=== PATIENT | female | born 1945 | race Caucasian/White ===

== ENCOUNTER → 2017-05-26 | Outpatient (CLI) | payer MEDICARE ==
--- NOTE | 2017-05-26 12:48 | KCIC ---
DEXA study Indication: Osteoporosis screening Findings: The bone mineral density of the lumbar spine L1-L4 0.982 g/cm^2 T score: -0.6 The average bone mineral density of the bilateral femurs: 0.837 g/cm^2 T score of -0.9. According to the world health organization (WHO): Normal: T score at or above -1 standard deviation Osteopenia: T score between -1 and -2.5 standard deviations Osteoporosis: T score at or below -2.5 standard deviations. Impression: Findings are consistent with mild osteopenia. Followup is recommended in 2 years. Electronically signed by: Jose Rainey MD (05/26/2017 12:44 PM)
--- NOTE | 2017-05-26 14:52 | KCIC ---
Bilateral digital screening mammograms: Reason for examination: Routine screening. Comparison is made to previous studies dated 07/23/2015 and 07/10/2013. The skin and nipples show no abnormalities. No abnormal axillary lymph nodes are seen. The breast parenchyma shows scattered fibroglandular density. (Breast density: Category B.) There continues to be a small nodule consistent with an intramammary lymph node in the lateral left breast on CC view which is unchanged. There are no new dominant masses, suspicious calcifications or architectural distortions. Impression: No evidence of malignancy. Recommend routine screening. BI-RADS Category 2: Benign. "Our facility is accredited by the [employer] Mammography Program." This patient's information has been entered into a reminder system for the patient to be notified with the results of her examination and a target date for the next mammogram. Electronically signed by: Gina Perry MD (05/26/2017 2:49 PM)
== END | disposition home or self-care (01) ==
LOC: KCIC MAMMO 11:53
PROVIDERS: ATTEND Family Medicine
DX: Z12.31 Encounter for screening mammogram for malignant neoplasm of breast (principal); Z78.0 Asymptomatic menopausal state
CPT/HCPCS: 77080; G0202; 77067

== ENCOUNTER → 2019-11-27 | Outpatient (CLI) | payer MEDICARE ==
--- NOTE | 2019-11-27 14:39 | KCIC ---
KNEE RIGHT 3V DATE: 11/27/2019 12:00 AM INDICATION: Right knee pain COMPARISON: None. FINDINGS: Bones: There is no evidence of acute fracture or dislocation. Joints: Moderate lateral compartment and mild medial and patellofemoral compartment degenerative changes. There is no joint effusion. Miscellaneous: None. IMPRESSION: Tricompartmental degenerative changes, worst and moderate in the lateral compartment. Electronically signed by: Andrea Nick MD (11/27/2019 2:37 PM) [facility]
--- NOTE | 2019-11-27 14:43 | KCIC ---
EXAM: Dual energy x-ray absorptiometry (DEXA). HISTORY: Postmenopausal female presents for osteoporosis screening. COMPARISON: 05/26/2017. TECHNIQUE: Dual energy x-ray absorptiometry of the lumbar spine and left hip was performed. Calculation of bone mineral density based on standard deviations above or below the expected young adult normal value (T-score) was completed. FINDINGS: The average bone mineral density in the 1st through 4th lumbar vertebrae is is 0.937 g/cmxcm, corresponding with a T-score of -1.0. There has been a 4.6% decrease in density of the lumbar spine compared to the study dated 05/26/2017. The average total bone mineral density in the left hip is 0.808 g/cmxcm, corresponding with a T-score of -1.1. There has been a 3.5% decrease in density of the left hip compared to the prior study dated 05/26/2017. IMPRESSION: 1. Borderline osteopenia measured at the lumbar spine. 2. Osteopenia measured at the left hip. Note: Definitions established by the World Health Organization: 1. Normal: T-score is -1.0 or above. 2. Osteopenia: T-score is between -1.0 and -2.5 . 3. Osteoporosis: T-score is -2.5 or below. Electronically signed by: Liliane Zapata MD (11/27/2019 2:40 PM) [place] [id number]
--- NOTE | 2019-11-28 14:45 | KCIC ---
BILATERAL SCREENING MAMMOGRAM, 3-D History: Routine screening. Comparison: Bilateral mammogram May 26, 2017. Technique: MLO and CC digital tomosynthesis (3D) images obtained. Radiologist reviewed these images on dedicated workstation. Findings: Breast Tissue Density B : There are scattered areas of fibroglandular density. Stable intramammary lymph node outer left breast. There are no dominant masses, suspicious microcalcifications, or architectural distortion. IMPRESSION: No mammographic evidence of malignancy. Recommend routine screening. BI-RADS category 2: Benign findings. Patient information is entered into reminder system with a target due date for the next screening mammogram. Mammography is the most sensitive method for finding small breast cancers, but it does not detect them all and is not a substitute for careful clinical examination. A negative mammogram does not negate a clinically suspicious finding and should not result in delay in biopsying a clinically suspicious abnormality. "Our facility is accredited by the [employer] Mammography Program." Electronically signed by: Kedar Carranza MD (11/28/2019 2:42 PM) [facility]
== END | disposition home or self-care (01) ==
LOC: KCIC DEXA 09:57
PROVIDERS: ATTEND Family Medicine
DX: Z12.31 Encounter for screening mammogram for malignant neoplasm of breast (principal); M17.11 Unilateral primary osteoarthritis, right knee; M85.89 Other specified disorders of bone density and structure, multiple sites
CPT/HCPCS: 73562; 77063; 77067; 77080

== ENCOUNTER 2022-03-28 12:35 | Emergency (ER) | payer MEDICARE ==
[~2022-03-28] VITALS: Ht 170.2 cm; Wt 70.0 kg
[2022-03-28 13:40] LABS: BASO % 1 % (0-3); EOS # 0.1 x10^3/uL (0.0-0.7); EOS % 1 % (0-3); HEMATOCRIT 36.4 % (36.0-47.0); HEMOGLOBIN 12.4 g/dL (12.0-15.5); LYMPH # 4.7 x10^3/uL (1.0-4.8); LYMPH % 49 % (24-48); MEAN CORPUSCULAR HEMOGLOBIN 32 pg (25-35); MEAN CORPUSCULAR HGB CONC 34 g/dL (31-37); MEAN CORPUSCULAR VOLUME 92 fL (79-100); MONO # 0.6 x10^3/uL (0.0-1.1); MONO % 7 % (0-9); NEUT # 4.2 x10^3/uL (1.8-7.7); NEUT % 43 % (31-73); PLATELET COUNT 211 x10^3/uL (140-400); RED BLOOD COUNT 3.95 x10^6/uL (3.50-5.40); RED CELL DISTRIBUTION WIDTH 13.2 % (11.5-14.5); WHITE BLOOD COUNT 9.7 x10^3/uL (4.0-11.0)
[2022-03-28 13:44] LABS: CALCIUM 9.3 mg/dL (8.5-10.1); CREATININE 1.1 mg/dL (0.6-1.0); GFR 48.6; POTASSIUM 4.1 mmol/L (3.5-5.1)
[2022-03-28 13:50] LABS: ALBUMIN/GLOBULIN RATIO 1.2 (1.0-1.7); MAGNESIUM 1.9 mg/dL (1.8-2.4); TOTAL BILIRUBIN 0.7 mg/dL (0.2-1.0); TOTAL PROTEIN 7.3 g/dL (6.4-8.2)
--- NOTE | 2022-03-28 14:07 | PHYS DOC ---
Past Medical History Past Medical History: High Cholesterol, Hypertension Past Surgical History: No Surgical History Smoking Status: Never Smoker Alcohol Use: None General Adult EDM: Chief Complaint: LOWER EXT PAIN HPI: HPI: Patient is a 76-year-old female that presents today with left calf pain. Patient states that over the last 2 days she has had increased pain in her left calf, she called her primary care physician Dr. Arias and he advised her to come to the emergency department for further evaluation and management of this pain. Patient denies trauma or injury to that area, patient states that she has a history of spider veins but has never been told that she had varicose veins in her legs. Patient denies chest pain, shortness of breath, fever chills, or numbness and tingling in her extremities. Review of Systems: Review of Systems: Constitutional: Denies fever or chills. [] Eyes: Denies change in visual acuity. [] HENT: Denies nasal congestion or sore throat. [] Respiratory: Denies cough or shortness of breath. [] Cardiovascular: Denies chest pain or edema. [] GI: Denies abdominal pain, nausea, vomiting, bloody stools or diarrhea. [] : Denies dysuria. [] Musculoskeletal: Left calf pain Integument: Denies rash. [] Neurologic: Denies headache, focal weakness or sensory changes. [] Endocrine: Denies polyuria or polydipsia. [] Lymphatic: Denies swollen glands. [] Psychiatric: Denies depression or anxiety. [] Heart Score: C/O Chest Pain: No Risk Factors: Risk Factors: DM, Current or recent (<one month) smoker, HTN, HLP, family history of CAD, obesity. Risk Scores: Score 0 - 3: 2.5% MACE over next 6 weeks - Discharge Home Score 4 - 6: 20.3% MACE over next 6 weeks - Admit for Clinical Observation Score 7 - 10: 72.7% MACE over next 6 weeks - Early Invasive Strategies Allergies: Allergies: Allergies Coded Allergies Type Severity Reaction Last Updated Verified No Known Drug Allergies 03/28/22 No Physical Exam: PE: Constitutional: Well developed, well nourished, no acute distress, non-toxic appearance. [] HENT: Normocephalic, atraumatic, bilateral external ears normal, oropharynx moist, no oral exudates, nose normal. [] Eyes: PERRLA, EOMI, conjunctiva normal, no discharge. [] Neck: Normal range of motion, no tenderness, supple, no stridor. [] Cardiovascular:Heart rate regular rhythm, no murmur [] Lungs & Thorax: Bilateral breath sounds clear to auscultation [] Abdomen: Bowel sounds normal, soft, no tenderness, no masses, no pulsatile masses. [] Skin: telangiectasia noted on bilateral legs. Back: No tenderness, no CVA tenderness. [] Extremities: Left calf is tender to touch no redness erythema or swelling noted, normal range of motion, neurovascular is intact distal to the pain, dorsalis pedis 2+, Neurologic: Alert and oriented X 3, normal motor function, normal sensory function, no focal deficits noted. [] Psychologic: Affect normal, judgement normal, mood normal. [] Current Patient Data: Labs: Laboratory Tests Test 03/28/22 13:25 White Blood Count 9.7 x10^3/uL (4.0-11.0) Red Blood Count 3.95 x10^6/uL (3.50-5.40) Hemoglobin 12.4 g/dL (12.0-15.5) Hematocrit 36.4 % (36.0-47.0) Mean Corpuscular Volume 92 fL (79-100) Mean Corpuscular Hemoglobin 32 pg (25-35) Mean Corpuscular Hemoglobin Concent 34 g/dL (31-37) Red Cell Distribution Width 13.2 % (11.5-14.5) Platelet Count 211 x10^3/uL (140-400) Neutrophils (%) (Auto) 43 % (31-73) Lymphocytes (%) (Auto) 49 % (24-48) H Monocytes (%) (Auto) 7 % (0-9) Eosinophils (%) (Auto) 1 % (0-3) Basophils (%) (Auto) 1 % (0-3) Neutrophils # (Auto) 4.2 x10^3/uL (1.8-7.7) Lymphocytes # (Auto) 4.7 x10^3/uL (1.0-4.8) Monocytes # (Auto) 0.6 x10^3/uL (0.0-1.1) Eosinophils # (Auto) 0.1 x10^3/uL (0.0-0.7) Basophils # (Auto) 0.0 x10^3/uL (0.0-0.2) Sodium Level 137 mmol/L (136-145) Potassium Level 4.1 mmol/L (3.5-5.1) Chloride Level 101 mmol/L (98-107) Carbon Dioxide Level 26 mmol/L (21-32) Anion Gap 10 (6-14) Blood Urea Nitrogen 24 mg/dL (7-20) H Creatinine 1.1 mg/dL (0.6-1.0) H Estimated GFR (Cockcroft-Gault) 48.6 BUN/Creatinine Ratio 22 (6-20) H Glucose Level 93 mg/dL (70-99) Calcium Level 9.3 mg/dL (8.5-10.1) Magnesium Level 1.9 mg/dL (1.8-2.4) Total Bilirubin 0.7 mg/dL (0.2-1.0) Aspartate Amino Transferase (AST) 20 U/L (15-37) Alanine Aminotransferase (ALT) 17 U/L (14-59) Alkaline Phosphatase 69 U/L (46-116) Total Protein 7.3 g/dL (6.4-8.2) Albumin 4.0 g/dL (3.4-5.0) Albumin/Globulin Ratio 1.2 (1.0-1.7) Laboratory Tests 03/28/22 13:25 Laboratory Tests 03/28/22 13:25 Vital Signs: Vital Signs Date Time Temp Pulse Resp B/P (MAP) Pulse Ox O2 Delivery O2 Flow Rate FiO2 03/28/22 12:40 97.7 80 18 141/66 (91) 100 Room Air 97.7 EKG: EKG: [] Radiology/Procedures: Radiology/Procedures: REASON: left calf pain PROCEDURE: VENOUS LOWER EXTREMITY LEFT EXAMINATION: US DPLX VENOUS EXTREMITY LOWER LT INDICATION: Left calf pain, evaluate for deep venous thrombosis. COMPARISONS: None TECHNIQUE: Grayscale, color and spectral Doppler evaluation of the Left lower extremity deep venous system(s) was performed. FINDINGS: Left common femoral, femoral and popliteal veins are normally compressible and demonstrate normally directed and appropriately phasic flow with augmentation. Normal flow is present within the saphenofemoral junctions and deep femoral veins in the proximal thigh and the posterior tibial and peroneal veins in the proximal calf. IMPRESSION: No left lower extremity deep venous thrombosis. Electronically signed by: Brodie Chavez MD (03/28/2022 2:56 PM) [facility] [] Course & Med Decision Making: Course & Med Decision Making Pertinent Labs and Imaging studies reviewed. (See chart for details) [id number] I did review laboratory and radiological results with patient did inform her that the ultrasound did not show any blood clot in her leg, and her electr olytes were within normal limits, she is to follow-up with Dr. Arias next week for further evaluation and management of this leg pain. Patient was encouraged to return here to the emergency department should she have increased swelling in her left leg, redness, warmth, and increased pain in her leg for further evaluation and management. Patient and family verbalized understanding of this and are agreeable with the plan of care. Dragon Disclaimer: Dragon Disclaimer: This electronic medical record was generated, in whole or in part, using a voice recognition dictation system. Departure Departure Impression: Primary Impression: Lower leg pain Qualified Codes: M79.662 - Pain in left lower leg Disposition: 01 HOME / SELF CARE / HOMELESS Condition: STABLE Referrals: MERARI ARIAS MD (PCP) Additional Instructions: Follow-up with Dr. Arias for further evaluation and management of your leg pain Tylenol and/or ibuprofen as needed for pain Return to the emergency department should you have increased swelling, increased pain, increased warmth and redness to your left leg. DANIEL SUMMERS APRN Mar 28, 2022 14:07
--- NOTE | 2022-03-28 14:59 | RAD ---
EXAMINATION: US DPLX VENOUS EXTREMITY LOWER LT INDICATION: Left calf pain, evaluate for deep venous thrombosis. COMPARISONS: None TECHNIQUE: Grayscale, color and spectral Doppler evaluation of the Left lower extremity deep venous s ystem(s) was performed. FINDINGS: Left common femoral, femoral and popliteal veins are normally compressible and demonstrate normally d irected and appropriately phasic flow with augmentation. Normal flow is present within the saphenofemoral junctions and deep femoral veins in the proximal thi gh and the posterior tibial and peroneal veins in the proximal calf. IMPRESSION: No left lower extremity deep venous thrombosis. Electronically signed by: Brodie hCavez MD (03/28/2022 2:56 PM) [facility]
[2022-03-28 15:30] VITALS: BP 132/58
== END 2022-03-28 15:39 | disposition home or self-care (01) ==
LOC: ER 12:35
DX: M79.662 Pain in left lower leg (principal); E78.00 Pure hypercholesterolemia, unspecified; I10 Essential (primary) hypertension
CPT/HCPCS: 36415; 80053; 83735; 85025; 93971; 99284

== ENCOUNTER → 2022-04-03 | Outpatient (CLI) | payer MEDICARE ==
[2022-03-28 15:30] VITALS: BP 132/58
--- NOTE | 2022-04-03 12:14 | KCIC ---
MRI BRAIN WO Date: 04/03/2022 11:08 AM Indication: UNILATERAL HEADACHE. Worsening right sided head pain in recent weeks, not resolving. Comparison: None. Technique: Multiplanar multisequence MRI of the brain was performed without intravenous contrast usin g the standard protocol. Findings: No acute infarct. No acute or chronic hemorrhage. The ventricles are normal in size and configuration without hydrocephalus. Mild scattered FLAIR hyperintensities in the subcortical and periventricular deep white matter, a nonspecific finding, most commonly seen with chronic small vessel ischemic disea se. Mild cerebral volume loss. The scalp and calvarium are normal. The pituitary and sella are normal. No Chiari malformation. Mild incompletely characterized degenerative spondylosis of the visualized upper cervical spine. The visualized orbits and globes are normal. The visualized paranasal sinuses are clear. The mastoid air cells are clear. Abnormal right vertebral artery flow-void. IMPRESSION: 1. No acute infarct, hemorrhage, mass, or hydrocephalus. 2. Abnormal right vertebral artery flow void, which may indicate slow flow or occlusion. Correlate cl inically, and if warranted CTA or MRA could be obtained for further characterization. 3. Mild chronic small vessel ischemic disease and mild cerebral volume loss. Electronically signed by: Andrea Nick MD (04/03/2022 12:11 PM) [id number]
== END ==
LOC: KCIC MRI 10:43
PROVIDERS: ATTEND Family Medicine
DX: I67.82 Cerebral ischemia (principal)
CPT/HCPCS: 70551